=== PATIENT | male | born 1970 | race African-American/Black ===

== ENCOUNTER 2016-09-10 13:50 | Emergency (ER) | payer SELFPAY ==
[~2016-09-10] VITALS: Ht 175.3 cm; Wt 90.0 kg
[2016-09-10 13:52] VITALS: BP 140/80; PULSE 68; RESP 24; TEMP 97.5; O2SAT 99
[2016-09-10] MEDS ORDERED: SODIUM CHLOR 0.9% 1000 ML INJ 1,000 ML IV SCH (14:12)
[2016-09-10] MEDS ORDERED: ONDANSETRON HCL 4 MG/2 ML VIAL IVP ONE (14:15)
[2016-09-10] MEDS ORDERED: MORPHINE SULFATE 4 MG/ML INJ IV PUSH ONE (14:15)
[2016-09-10 14:48] LABS: AUTOMATED NEUTROPHIL # 11.6 TH/MM3 (1.8-7.7); BASOPHIL # 0.1 TH/MM3 (0-0.2); BASOPHIL % 0.7 % (0.0-2.0); EOSINOPHIL # 0.1 TH/MM3 (0-0.4); EOSINOPHIL % 0.8 % (0.0-4.0); HEMATOCRIT 47.5 % (39.0-51.0); HEMO FLAGS DIFF FINAL; LYMPHOCYTE # 2.4 TH/MM3 (1.0-4.8); MEAN CELL VOLUME 76.4 FL (80.0-100.0); MEAN CORPUSCULAR HEMOGLOBIN 24.3 PG (27.0-34.0); MEAN CORPUSCULAR HGB CONC 31.8 % (32.0-36.0); MONO % 11.3 % (0.0-8.0); NEUT % 72.2 % (16.0-70.0); PLATELET COUNT 245 TH/MM3 (150-450); RED BLOOD COUNT 6.23 MIL/MM3 (4.50-5.90); RED CELL DISTRIBUTION WIDTH 17.2 % (11.6-17.2); WHITE BLOOD COUNT 16.1 TH/MM3 (4.0-11.0)
[2016-09-10 15:19] VITALS: BP 130/75; PULSE 69; RESP 14; O2SAT 99
[2016-09-10 15:20] LABS: ALT (GPT) 22 U/L (12-78); ANION GAP 8 MEQ/L (5-15); AST (GOT) 22 U/L (15-37); BICARBONATE 27.9 MEQ/L (21.0-32.0); BLOOD UREA NITROGEN 14 MG/DL (7-18); CHLORIDE 105 MEQ/L (98-107); GLOMERULAR FILTRATION RATE 83 ML/MIN (>89); SODIUM (NA) 141 MEQ/L (136-145)
[2016-09-10 15:23] LABS: ALKALINE PHOSPHATASE 130 U/L (45-117); TOTAL BILIRUBIN ADULT 0.5 MG/DL (0.2-1.0)
[2016-09-10] MEDS ORDERED: MIDAZOLAM HCL 2 MG/2 ML VIAL IV PUSH ONE (16:00)
[2016-09-10] MEDS ORDERED: SODIUM CHLOR 0.9% 1000 ML INJ 1,000 ML IV ONE (16:15)
[2016-09-10 16:25] VITALS: BP 110/55; PULSE 75; RESP 12; O2SAT 97
[2016-09-10] MEDS ORDERED: PIPERACIL-TAZO 4.5 GM PREMIX 100 ML IV ONE (16:30)
--- NOTE | 2016-09-10 16:48 | PD ---
HPI Chief Complaint: Abdominal Pain Time Seen by Provider: 14:07 Travel History International Travel<30 days: No Contact w/Intl Traveler<30days: No Traveled to known affect area: No History of Present Illness HPI 45-year-old male came to the emergency room with history of right inguinal hernia that patient has had 3 to 4 years but sudden worsening of pain this morning. Patient says that he ate his breakfast and soon after the pain started. It feels like its radiating to his testicle. Patient never seek any medical or surgical attention for his swelling/hernia for all these years except for today when the pain was so severe. His vital signs were stable in the emergency room triage. He otherwise is a healthy person. 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 Currently appears to be uncomfortable and in pain. [facility] Past Medical History Narrative Medical List of his past medical, surgical, social and family history was reviewed from the nursing note. Diminished Hearing: No Gastrointestinal Disorders: Yes (hernia) Musculoskeletal: Yes (LOWER BACK PAIN) Influenza Vaccination: No Social History Alcohol Use: Yes (SOCIAL) Tobacco Use: Yes (< PPD) Substance Use: No Allergies-Medications (Allergen,Severity, Reaction): Coded Allergies: No Known Allergies (Verified , 09/10/16) Comments No known drug allergies. Reported Meds & Prescriptions Reported Meds & Active Scripts Active Ultram (Tramadol HCl) 50 Mg Tab 50 Mg PO Q6H PRN Narrative Medication List of his home medications reviewed from the nursing note. Review of Systems Except as stated in HPI: all other systems reviewed are Neg Physical Exam Narrative GENERAL: Awake, alert, moderate distress SKIN: Focused skin assessment warm/dry. HEAD: Atraumatic. Normocephalic. EYES: Pupils equal and round. No scleral icterus. No injection or drainage. ENT: No nasal bleeding or discharge. Mucous membranes pink and moist. NECK: Trachea midline. No JVD. CARDIOVASCULAR: Regular rate and rhythm. No murmur appreciated. RESPIRATORY: No accessory muscle use. Clear to auscultation. Breath sounds equal bilaterally. GASTROINTESTINAL: Abdomen soft, non-tender, nondistended. Hepatic and splenic margins not palpable. Large inguinal hernia with possible hydrocele component. It is 7 x 10 cm in size. MUSCULOSKELETAL: No obvious deformities. No clubbing. No cyanosis. No edema. NEUROLOGICAL: Awake and alert. No obvious cranial nerve deficits. Motor grossly within normal limits. Normal speech. PSYCHIATRIC: Appropriate mood and affect; insight and judgment normal. Data Data Last Documented VS Vital Signs Date Time Temp Pulse Resp B/P Pulse Ox O2 Delivery O2 Flow Rate FiO2 09/10/16 17:28 80 15 121/70 99 Room Air 09/10/16 13:52 97.5 Orders Complete Blood Count With Diff (09/10/16 14:12) Comprehensive Metabolic Panel (09/10/16 14:12) Prothrombin Time / Inr (Pt) (09/10/16 14:12) Act Partial Throm Time (Ptt) (09/10/16 14:12) Iv Access Insert/Monitor (09/10/16 14:12) Ecg Monitoring (09/10/16 14:12) Oximetry (09/10/16 14:12) Morphine Inj (Morphine Inj) (09/10/16 14:15) Ondansetron Inj (Zofran Inj) (09/10/16 14:15) Sodium Chlor 0.9% 1000 Ml Inj (Ns 1000 M (09/10/16 14:12) Midazolam Inj (Versed Inj) (09/10/16 16:00) Fentanyl Inj (Fentanyl Inj) (09/10/16 16:00) Sodium Chlor 0.9% 1000 Ml Inj (Ns 1000 M (09/10/16 16:15) Ct Abd/Pel W/O Iv Contrast (09/10/16 ) Lactic Acid (09/10/16 16:26) Piperacil-Tazo 4.5 Gm Premix (Zosyn 4.5 (09/10/16 16:30) Labs Laboratory Tests Test 09/10/16 09/10/16 14:28 16:45 White Blood Count 16.1 TH/MM3 Red Blood Count 6.23 MIL/MM3 Hemoglobin 15.1 GM/DL Hematocrit 47.5 % Mean Corpuscular Volume 76.4 FL Mean Corpuscular Hemoglobin 24.3 PG Mean Corpuscular Hemoglobin 31.8 % Concent Red Cell Distribution Width 17.2 % Platelet Count 245 TH/MM3 Mean Platelet Volume 7.5 FL Neutrophils (%) (Auto) 72.2 % Lymphocytes (%) (Auto) 15.0 % Monocytes (%) (Auto) 11.3 % Eosinophils (%) (Auto) 0.8 % Basophils (%) (Auto) 0.7 % Neutrophils # (Auto) 11.6 TH/MM3 Lymphocytes # (Auto) 2.4 TH/MM3 Monocytes # (Auto) 1.8 TH/MM3 Eosinophils # (Auto) 0.1 TH/MM3 Basophils # (Auto) 0.1 TH/MM3 CBC Comment DIFF FINAL Differential Comment Sodium Level 141 MEQ/L Potassium Level 4.0 MEQ/L Chloride Level 105 MEQ/L Carbon Dioxide Level 27.9 MEQ/L Anion Gap 8 MEQ/L Blood Urea Nitrogen 14 MG/DL Creatinine 1.16 MG/DL Estimat Glomerular Filtration 83 ML/MIN Rate Random Glucose 119 MG/DL Calcium Level 9.4 MG/DL Total Bilirubin 0.5 MG/DL Aspartate Amino Transf 22 U/L (AST/SGOT) Alanine Aminotransferase 22 U/L (ALT/SGPT) Alkaline Phosphatase 130 U/L Total Protein 7.4 GM/DL Albumin 3.8 GM/DL Prothrombin Time 10.4 SEC Prothromb Time International 0.9 RATIO Ratio Activated Partial 21.1 SEC Thromboplast Time Lactic Acid Level 2.1 mmol/L MDM Medical Decision Making Medical Screen Exam Complete: Yes Emergency Medical Condition: Yes Medical Record Reviewed: Yes Differential Diagnosis Incarcerated hernia, hernia hydrocele Narrative Course 4:44 PM patient was given IV fluid bolus and labs were ordered. Ice bag was applied to the area for 45-15 minutes. With signed consent conscious sedation was used to reduce the hernia. Please refer to my procedure note for that. I was unable to reduce the hernia. Patient has leukocytosis and I have ordered IV Zosyn along with another liter of IV fluid bolus. I've also ordered a CT scan. I just spoke with Dr. Hidalgo was on for general surgery and consult with him on the case. Case most probably will be signed out to the oncoming ER physician. Procedures Procedure Narrative After the risks and benefits were discussed the following procedure was performed: MODERATE SEDATION: The patient was placed on a cardiac cath rn and pulse oximetry. An ambu bag and suction was immediately available at bedside. The patient was monitored by the nurse. Oxygen saturation , heart rate and blood pressure were monitored. Procedural sedation was acheived using 4 mg of IV for said and 50 g of IV fentanyl. The patient was observed until awake and alert. Procedural Sedation time in attendance was 25 minutes. Bedside testicular ultrasound: Bedside ultrasound was performed by me with a linear probe. On the proximal aspect of the scrotal sac near the spermatic cord loops of bowel could be visualized and at the distal part of the sac hydrocele was noticed. Hernia was tried to be reduced by me by manipulation but eventually unsuccessful. Overall patient tolerated the procedure well. EKG Prior to Arrival: No Physician Communication Physician Communication Dr. Hidalgo Diagnosis Primary Impression: Incarcerated hernia Additional Impression: Hydrocele in adult Scripts Tramadol (Ultram)50 Mg Tab50 Mg PO Q6H PRN (PAIN) #20 TAB Ref 0 Prov:Wilfredo Villegas MD 09/10/16 Cornelio Lipscomb MD Sep 10, 2016 16:48
[2016-09-10 17:13] LABS: APTT (PATIENT) 21.1 SEC (24.3-30.1); INTERNATIONAL NORMALIZED RATIO 0.9 RATIO; PROTHROMBIN TIME - PATIENT 10.4 SEC (9.8-11.6)
[2016-09-10 17:28] VITALS: BP 121/70; PULSE 80; RESP 15; O2SAT 99
--- NOTE | 2016-09-10 17:33 | RADRPT ---
EXAM DATE/TIME: 09/10/2016 17:09 [place] COMPARISON: No previous studies available for comparison. INDICATIONS : Right groin pain. ORAL CONTRAST: No oral contrast ingested. RADIATION DOSE: 8.17 CTDIvol (mGy) MEDICAL HISTORY : Hernia, inguinal. SURGICAL HISTORY : None. ENCOUNTER: Initial ACUITY: 1 day PAIN SCALE: 6/10 LOCATION: Right lower quadrant TECHNIQUE: Volumetric scanning of the abdomen and pelvis was performed. Using automated exposure control and ad justment of the mA and/or kV according to patient size, radiation dose was kept as low as reasonably achievable to obtain optimal diagnostic quality images. FINDINGS: LOWER LUNGS: The visualized lower lungs are clear. LIVER: Homogeneous density without lesion. There is no dilation of the biliary tree. No calcified gallston es. SPLEEN: Normal size without lesion. PANCREAS: Within normal limits. KIDNEYS: Normal in size and shape. There is no mass, stone, or hydronephrosis. ADRENAL GLANDS: Within normal limits. VASCULAR: There is no aortic aneurysm. BOWEL/MESENTERY: There is a large right inguinal hernia which contains several loops of small bowel. There is strandin g of the fat with small amount of fluid extending into the right scrotum. The small bowel more proxim ally are mildly dilated. No significant pneumatosis or free air. No drainable fluid collections. RETROPERITONEUM: There is no lymphadenopathy. BLADDER: No wall thickening or mass. MUSCULOSKELETAL: Within normal limits for patient age. CONCLUSION: 1. Large right inguinal hernia with incarcerated small bowel. No evidence for bowel infarction or per foration. No drainable fluid collections. Findings were personally discussed with ED physician at the time of this dictation. Erik Marsh MD on September 10, 2016 at 17:23 Board Certified Radiologist. This report was verified electronically.
[2016-09-10] MEDS ORDERED: ULTR50TA5 PO (17:46)
--- NOTE | 2016-09-10 17:47 | PD ---
Physical Exam Narrative Patient was seen by ED physician and signed out to me. Data Data Last Documented VS Vital Signs Date Time Temp Pulse Resp B/P Pulse Ox O2 Delivery O2 Flow Rate FiO2 09/10/16 17:28 80 15 121/70 99 Room Air 09/10/16 13:52 97.5 Orders Complete Blood Count With Diff (09/10/16 14:12) Comprehensive Metabolic Panel (09/10/16 14:12) Prothrombin Time / Inr (Pt) (09/10/16 14:12) Act Partial Throm Time (Ptt) (09/10/16 14:12) Iv Access Insert/Monitor (09/10/16 14:12) Ecg Monitoring (09/10/16 14:12) Oximetry (09/10/16 14:12) Morphine Inj (Morphine Inj) (09/10/16 14:15) Ondansetron Inj (Zofran Inj) (09/10/16 14:15) Sodium Chlor 0.9% 1000 Ml Inj (Ns 1000 M (09/10/16 14:12) Midazolam Inj (Versed Inj) (09/10/16 16:00) Fentanyl Inj (Fentanyl Inj) (09/10/16 16:00) Sodium Chlor 0.9% 1000 Ml Inj (Ns 1000 M (09/10/16 16:15) Ct Abd/Pel W/O Iv Contrast (09/10/16 ) Lactic Acid (09/10/16 16:26) Piperacil-Tazo 4.5 Gm Premix (Zosyn 4.5 (09/10/16 16:30) Labs Laboratory Tests Test 09/10/16 09/10/16 14:28 16:45 White Blood Count 16.1 TH/MM3 Red Blood Count 6.23 MIL/MM3 Hemoglobin 15.1 GM/DL Hematocrit 47.5 % Mean Corpuscular Volume 76.4 FL Mean Corpuscular Hemoglobin 24.3 PG Mean Corpuscular Hemoglobin 31.8 % Concent Red Cell Distribution Width 17.2 % Platelet Count 245 TH/MM3 Mean Platelet Volume 7.5 FL Neutrophils (%) (Auto) 72.2 % Lymphocytes (%) (Auto) 15.0 % Monocytes (%) (Auto) 11.3 % Eosinophils (%) (Auto) 0.8 % Basophils (%) (Auto) 0.7 % Neutrophils # (Auto) 11.6 TH/MM3 Lymphocytes # (Auto) 2.4 TH/MM3 Monocytes # (Auto) 1.8 TH/MM3 Eosinophils # (Auto) 0.1 TH/MM3 Basophils # (Auto) 0.1 TH/MM3 CBC Comment DIFF FINAL Differential Comment Sodium Level 141 MEQ/L Potassium Level 4.0 MEQ/L Chloride Level 105 MEQ/L Carbon Dioxide Level 27.9 MEQ/L Anion Gap 8 MEQ/L Blood Urea Nitrogen 14 MG/DL Creatinine 1.16 MG/DL Estimat Glomerular Filtration 83 ML/MIN Rate Random Glucose 119 MG/DL Calcium Level 9.4 MG/DL Total Bilirubin 0.5 MG/DL Aspartate Amino Transf 22 U/L (AST/SGOT) Alanine Aminotransferase 22 U/L (ALT/SGPT) Alkaline Phosphatase 130 U/L Total Protein 7.4 GM/DL Albumin 3.8 GM/DL Prothrombin Time 10.4 SEC Prothromb Time International 0.9 RATIO Ratio Activated Partial 21.1 SEC Thromboplast Time Lactic Acid Level 2.1 mmol/L MDM Supervised Visit with ALEX: No Narrative Course Right inguinal hernia was reduced by me. Dr. Hidalgo came to see the patient. Patient will be follow-up with him in the office for outpatient surgery. Procedures Procedure Narrative Right inguinal hernia reduction: Patient lying down in bed. Gentle pressure applied to the right scrotum. The hernia was reduced without complication. Patient is pain-free now. Diagnosis Primary Impression: Reducible right inguinal hernia Patient Instructions: General Instructions Additional Instruction: Avoid heavy lifting. Off work till cleared by surgeon. Follow with Dr. Correa, surgeon at [facility] on Monday. Med/Other Pt SpecificInfo: Prescription(s) given Scripts Tramadol (Ultram)50 Mg Tab50 Mg PO Q6H PRN (PAIN) #20 TAB Ref 0 Prov:Wilfredo Villegas MD 09/10/16 Disposition: 01 DISCHARGE HOME Condition: Stable Wilfredo Villegas MD Sep 10, 2016 17:46
== END 2016-09-10 19:04 | disposition home or self-care (01) ==
LOC: NEPD 13:50
DX: K40.90 Unilateral inguinal hernia, without obstruction or gangrene, not specified as recurrent (principal); K40.31 Unilateral inguinal hernia, with obstruction, without gangrene, recurrent; N43.3 Hydrocele, unspecified; F17.210 Nicotine dependence, cigarettes, uncomplicated
CPT/HCPCS: 49585; 74176; 80053; 83605; 85025; 85610; 85730; 96361; 96365; 96375; 99152; 99153; 99285; J2250; J2270; J2405; J2543; J3010; J7030